=== PATIENT | male | born 1950 | race Caucasian/White ===

== ENCOUNTER → 2017-03-17 | Day surgery (SDC) | payer OTHER ==
[~2017-03-17] VITALS: Ht 182.9 cm; Wt 76.7 kg
[~2017-03-17] MED LIST: *morphine SULFATE 8 MG/ML PERIprocedure ONLY ONE; ACETAMINOPHEN/HYDROcodone 325 MG/7.5 MG TAB PO PRN; BUPIVACAINE/EPINEPHRINE 0.25% PF 30 ML VIAL ONE; CEPH-460 PO; CEPH500C3 PO; CEPHALEXIN MONOHYDRATE 500 MG CAP PO SCH; CHLORHEXIDINE GLUCONATE 2 % 1 PACK (2 CLOTHS) TOPICAL PRN; CHLORHEXIDINE GLUCONATE 4% SOLN 120 ML BTL TOPICAL SCH; DEXAMETHASONE SOD PHOS 4 MG/ML VIAL IV ONE; DO NOT ADM ANY ANTICOAGULANT DRUGS PRN; ENAL10TA PO; GENTAMICIN SULFATE 80 MG/2 ML VIAL ONE; GLIP5TAB8 PO; GLYCOPYRROLATE 1 MG/5 ML SYRINGE IV PUSH ONE; HYDR-3288 PO; HYDR-3583 PO; LABETALOL HCL 100 MG/20 ML VIAL IV ONE; LACTATED RINGER'S 1000 ML IV PRN; LIDOCAINE HCL 1% PF 5 ML SYRINGE OTHER ONE; LORT7.5T3 PO; METF500T4 PO; METH500T3 PO; METOPROLOL TARTRATE 25 MG TAB PO PRN; MIDAZOLAM HCL 2 MG/2 ML VIAL IV ONE; MORPHINE SULFATE 4 MG/ML INJ IV ONE; MORPHINE SULFATE 4 MG/ML INJ ONE; NEOSTIGMINE 5 MG/5 ML SYRINGE IV PUSH ONE; ONDANSETRON HCL 4 MG/2 ML VIAL IV ONE; OXYC15TA PO; POVIDONE IODINE 5% (ANTISEPSIS KIT) 4 APPLICATIONS EACH NARE PRN; PROPOFOL 200 MG/20 ML AMP IV ONE; ROCURONIUM INJ 50 MG/5 ML SYRINGE IV PUSH ONE; SODIUM CHLORID 0.9% 500 ML IV PRN; ceFAZolin 1,000 MG/NS 100 ML IV SCH; ceFAZolin INJ 1,000 MG VIAL ONE; hydrALAZINE HCL 20 MG/ML VIAL IV ONE
[2017-03-17 19:00] VITALS: BP 154/83; PULSE 96; RESP 18; TEMP 98.1; O2SAT 98
--- NOTE | 2017-03-17 19:55 | RADRPT ---
EXAM DATE/TIME: 03/17/2017 16:37 [place] COMPARISON: No previous studies available for comparison. INDICATIONS : Lower back pain. MEDICAL HISTORY : None. SURGICAL HISTORY : None. ENCOUNTER: Initial ACUITY: 1 day PAIN SCORE: Non-responsive. LOCATION: Bilateral lower back. FINDINGS: A single lateral view of the lumbar spine was performed. The probe overlies the neural foramen between L4 and L5. CONCLUSION: 1. Probe the overlying neural foramen between L4 and L5. Sagar Ospina MD on March 17, 2017 at 19:52 Board Certified Radiologist. This report was verified electronically.
--- NOTE | 2017-03-17 23:19 | MP ---
cc: JULIA JUAN DATE OF SURGERY: 03/17/2017 PREOPERATIVE DIAGNOSIS: L3-4, L4-5 herniated nucleus pulposus. POSTOPERATIVE DIAGNOSIS L3-4, L4-5 herniated nucleus pulposus. PROCEDURE L3-4, L4-5 bilateral hemilaminectomy, foraminotomy, partial facetectomy L3-4, L4-5 diskectomy. SURGEON Gia Juan MD ASSESSMENT CAMILO Mccall ESTIMATED BLOOD LOSS 100 cc SPECIMENS None ANESTHESIA General CONDITION: Stable. PLAN OF ACTIVITY: Per orders. My psychological assistant, CAMILO Mccall, was present for entire surgical case. She was medically necessary for entire case because of the complexity of the case and to facilitate the performance of the procedure. The FIELD EVIDENCE TECHNICIAN at the back table did not have the skill set for this case to manipulate the instruments, e.g., the multiple different type of soft tissue retractors and nerve root retractors. DESCRIPTION OF PROCEDURE: The patient was brought to the operating room and had satisfactory general anesthesia by the department of anesthesia. The patient was carefully transferred onto the [facility] spinal frame. All pressure points were well-padded. Lumbosacral spine was prepped and draped in usual sterile manner. The fluoroscopic guidance was used to identify the L3-4, L4-5 interspaces, 20 cc of local anesthesia was used to anesthetize the operative site. Midline incision made over L3-4, L4-5. Dissection continued through skin and subcutaneous tissue. There was a considerable amount of adipose tissue because of the patient's obesity. The paraspinal musculature was gently removed bilaterally at L4-5. A bilateral decompressive hemilaminectomy was performed at the L4-5 level. Bilateral facetectomy and foraminotomies were also performed. The patient was found to have moderate to moderately severe spinal stenosis, more on the right than the left. Satisfactory decompression was performed. There was no evidence of any CSF leak. There was no evidence of any bleeding. The wound was irrigated with copious amounts of sterile saline. The wound itself was dry. The wound was closed in a routine manner. The fascia was closed with running #2 Tycron suture, subcutaneous layers with 2-0 Vicryl, and skin approximated with running subcuticular 3-0 Vicryl. Dermabond was placed over the skin incision. The patient tolerated the procedure well and arrived in the recovery room in stable and satisfactory condition. No 2 hemilaminectomy PREOPERATIVE DIAGNOSIS: 1. L5-S1 herniated nucleus pulposus. 2. Lumbar spine degenerative disc disease osteoarthritis. 3. Left greater than right lumbar radiculitis, left lower extremity weakness. POSTOPERATIVE DIAGNOSIS: 1. L5-S1 herniated nucleus pulposus. 2. Lumbar spine degenerative disc disease osteoarthritis. 3. Left greater than right lumbar radiculitis, left lower extremity weakness. PROCEDURE: L5-S1 bilateral hemilaminectomy, foraminotomy, partial facetectomy, decompression nerve root; L5-S1 diskectomy. SURGEON Karson Juan MD NEW CAR MAKE READY WORKER: CAMILO Mccall SPECIMEN: None. ESTIMATED BLOOD LOSS: 10 cc COMPLICATIONS None ANESTHESIA General. DRAINS: None. CONDITION: Stable. PLAN OF ACTIVITY: Per orders. My psychological assistant Carmella Lemon PA-C was present for the entire surgical case. She was medically necessary for the entire case because of the complexity of the case and to facilitate the performance of the procedure. The FIELD EVIDENCE TECHNICIAN at the back table did not have the skill set for this case to manipulate the instruments, e.g., the multiple different type of soft tissue retractors and nerve root retractors. DESCRIPTION OF PROCEDURE: The patient was brought to the operating room and had satisfactory anesthesia by the Department of Anesthesia. The patient was carefully placed onto the [facility] spinal frame. All pressure points were well-padded. The lumbosacral spine was prepped and draped in the usual sterile manner. Fluoroscopic guidance was used to identify the L3-L4 and L4-L5 interspaces, 20 cc of local anesthesia was used to anesthetize the operative site. Midline incision made over the L3-L4 and L4-L5. Dissection continued through skin and subcutaneous tissue. The paraspinal musculature was gently removed. Localizing x-ray was used to confirm the L3-4, L4-5 interspaces. Hemilaminectomy performed at L3-4 and L4-5. Foraminotomy and partial facetectomy was also performed on the right side. The patient was found to have a large extruded herniated nucleus pulposus behind the vertebral body of L4. Dissection carried all the way from the interspace of L3-L4 all the way down to the interspace of L4-L5. There was no evidence of any cerebrospinal fluid leak. The disk was removed in multiple large pieces. Surgiflo was also used at the operative site to help prevent any postoperative bleeding at the epidural space. The wound itself was dry. It was irrigated with copious amounts of sterile saline, the wound itself was dry. It was closed in multiple layers, the fascia closed with #2 Tycron suture. The subcutaneous layer with 2-0 Vicryl. Skin approximated with running subcuticular 3-0 Vicryl. Sterile dressings were applied. The patient tolerated the procedure well and arrived in the Recovery Room in stable and satisfactory condition. MD JOSE Nichols/RA /5:02 PM /10:57 PM
== END | disposition home or self-care (01) ==
LOC: HSDC 11:39 → EDSTATUS 14:15
PROVIDERS: ATTEND Orthopaedic Surgery Orthopaedic Surgery of the Spine
DX: M51.16 Intervertebral disc disorders with radiculopathy, lumbar region (principal); M96.1 Postlaminectomy syndrome, not elsewhere classified; M16.0 Bilateral primary osteoarthritis of hip; I10 Essential (primary) hypertension
CPT/HCPCS: 00630; 63030; 63035; 72020; 76000; J0360; J0690; J1100; J1580; J2250; J2270; J2405; J2710; J3010; J7120

== ENCOUNTER 2017-04-14 12:51 | Day surgery (SDC) | payer OTHER ==
[~2017-04-14] VITALS: Ht 182.9 cm; Wt 72.7 kg
[~2017-04-14 12:51] MED LIST changes: -*morphine SULFATE 8 MG/ML PERIprocedure ONLY ONE; -ACETAMINOPHEN/HYDROcodone 325 MG/7.5 MG TAB PO PRN; -BUPIVACAINE/EPINEPHRINE 0.25% PF 30 ML VIAL ONE; -CEPH500C3 PO; -CEPHALEXIN MONOHYDRATE 500 MG CAP PO SCH; -CHLORHEXIDINE GLUCONATE 2 % 1 PACK (2 CLOTHS) TOPICAL PRN; -CHLORHEXIDINE GLUCONATE 4% SOLN 120 ML BTL TOPICAL SCH; -DO NOT ADM ANY ANTICOAGULANT DRUGS PRN; -GENTAMICIN SULFATE 80 MG/2 ML VIAL ONE; +LACTATED RINGER'S 1000 ML INJ 1,000 ML IV ONE; -LACTATED RINGER'S 1000 ML IV PRN; -LORT7.5T3 PO; -METOPROLOL TARTRATE 25 MG TAB PO PRN; -MIDAZOLAM HCL 2 MG/2 ML VIAL IV ONE; -MORPHINE SULFATE 4 MG/ML INJ IV ONE; -MORPHINE SULFATE 4 MG/ML INJ ONE; -ONDANSETRON HCL 4 MG/2 ML VIAL IV ONE; +ONDANSETRON HCL 4 MG/2 ML VIAL IV PUSH ONE; +PHENYLEPH/NS 1000 MCG/10 ML SYR IV ONE; -POVIDONE IODINE 5% (ANTISEPSIS KIT) 4 APPLICATIONS EACH NARE PRN; -SODIUM CHLORID 0.9% 500 ML IV PRN; +VECURONIUM BROMIDE 20 MG VIAL IV ONE; -ceFAZolin 1,000 MG/NS 100 ML IV SCH; -ceFAZolin INJ 1,000 MG VIAL ONE; +ePHEDrine/NS 25 MG/5 ML SYRINGE IV ONE; -hydrALAZINE HCL 20 MG/ML VIAL IV ONE
[2017-04-14] MEDS ORDERED: CHLORHEXIDINE GLUCONATE 4% SOLN 120 ML BTL TOPICAL SCH (13:30)
[2017-04-14] MEDS ORDERED: ceFAZolin 2 GM PREMIX 50 ML IV SCH (13:30)
[2017-04-14] MEDS ORDERED: LACTATED RINGER'S 1000 ML IV PRN (13:30)
[2017-04-14] MEDS ORDERED: CHLORHEXIDINE GLUCONATE 2 % 1 PACK (2 CLOTHS) TOPICAL PRN (13:30)
[2017-04-14] MEDS ORDERED: METOPROLOL TARTRATE 25 MG TAB PO PRN (13:30)
[2017-04-14] MEDS ORDERED: POVIDONE IODINE 5% (ANTISEPSIS KIT) 4 APPLICATIONS EACH NARE PRN (13:30)
[2017-04-14] MEDS ORDERED: SODIUM CHLORID 0.9% 500 ML IV PRN (13:30)
[2017-04-14] MEDS ORDERED: BUPIVACAINE/EPINEPHRINE 0.25% PF 30 ML VIAL ONE (14:34)
[2017-04-14] MEDS ORDERED: ceFAZolin INJ 1,000 MG VIAL ONE (14:34)
[2017-04-14] MEDS ORDERED: GENTAMICIN SULFATE 80 MG/2 ML VIAL ONE (14:34)
[2017-04-14] MEDS ORDERED: GELFOAM SIZE 100 ONE (14:36)
[2017-04-14] MEDS ORDERED: THROMBIN (TOPICAL) 20,000 UNIT SPRAY KIT ONE (14:36)
[2017-04-14] MEDS ORDERED: THROMBIN (TOPICAL) 5,000 UNIT VIAL ONE (16:48)
[2017-04-14] MEDS ORDERED: MIDAZOLAM HCL 2 MG/2 ML VIAL ONE ×2 (19:08→19:22)
[2017-04-14 19:15] VITALS: TEMP 98.6
[2017-04-14] MEDS ORDERED: *morphine SULFATE 8 MG/ML PERIprocedure ONLY ONE ×3 (19:27→19:55)
[2017-04-14] MEDS ORDERED: ceFAZolin 1,000 MG/NS 100 ML IV SCH ×2 (20:00)
[2017-04-14] MEDS ORDERED: ACETAMINOPHEN/HYDROcodone 325 MG/7.5 MG TAB PO PRN (20:00)
[2017-04-14] MEDS ORDERED: DO NOT ADM ANY ANTICOAGULANT DRUGS PRN (20:15)
[2017-04-14 20:45] VITALS: BP 158/79; PULSE 84; RESP 16; O2SAT 96
[2017-04-14] MEDS ORDERED: *HYDROmorphone PF 1 MG VIAL PERIprocedural Use ONLY ONE (20:59)
--- NOTE | 2017-04-15 07:42 | MP ---
cc: JULIA JUAN M.D., [place] DATE OF SURGERY 04/14/2017 PREOPERATIVE DIAGNOSIS 1. L3-4, L4-5 recurrent herniated nucleus pulposus. 2. Status post L3-4 and L4-5 laminectomy March 17, 2017. 3. Lumbar spine degenerative disc disease, osteoarthritis, scoliosis. 4. Right greater than left lumbar radiculitis with right lower extremity weakness. POSTOPERATIVE DIAGNOSIS 1. L3-4, L4-5 recurrent herniated nucleus pulposus. 2. Status post L3-4 and L4-5 laminectomy March 17, 2017. 3. Lumbar spine degenerative disc disease, osteoarthritis, scoliosis. 4. Right greater than left lumbar radiculitis with right lower extremity weakness. PROCEDURE L3-4, L4-5 bilateral hemilaminectomy and foraminotomy, partial facetectomy, decompression nerve root, and redo L4-5, L3-4 diskectomy. SURGEON Gia Juan MD ASSESSMENT Carmella Lemon PA-C SPECIMENS None ESTIMATED BLOOD LOSS 125 cc ANESTHESIA General DRAINS None CONDITION Stable PLAN OF ACTIVITY Per orders INDICATIONS This is a 67-year-old male who is status post L3-4, L4-5 laminectomy and diskectomy on May 18, 2016. The patient did very well following the surgery, had no radiating leg pain and back pain. The patient states that he "overdid" in bending and twisting and on developed recurrent extreme pain into the right leg and to a lesser agree into the left leg. Repeat images showed the patient to have a recurrent herniated nucleus pulposis at L3-4 and also at L4-5. PROCEDURE My casino assistant manager Carmella Lemon PA-C was present for the entire surgical case. She was medically necessary for the entire case because of the complexity of the case and to facilitate the performance of the procedure. The SPOUT TENDER at the back table was not a skill set to manipulate the instruments. These include soft tissue retractors and nerve retractors. The patient brought into the operating room, had satisfactory anesthesia by Dr. Mir of the Department of Anesthesia. The patient was carefully transferred onto the [facility] spinal frame. All pressure points were well-padded. The lumbosacral spine was prepped and draped in the usual sterile manner. Imaging was used to confirm both the L4-5 and L3-4 interspaces. 30 cc of 0.25% Marcaine with epinephrine was used to infiltrate the operative site. Previous scar tissue was surgically excised. Dissection carried down through the subcutaneous tissue. The patient had an excessive amount of scar tissue. This was removed sharply. A bilateral decompressive hemilaminectomy was performed at L4-5. The patient was found to have an excessive amount of scar tissue. The patient was found to have a central and right-sided extruded herniated nucleus pulses at the L4-5 area. This was removed in multiple pieces. The patient had significant impingement of both the L4 and L5 nerve roots. Further dissection was then carried out at the L3-4 interspace. The patient was found to have an extension amount of scar tissue. The patient again was found to have a recurrent extruded fragment on the inferior aspect of the L4 vertebral body at the L3-4 interspace. Bilateral decompressive hemilaminectomy was performed with foraminotomies. The wound was irrigated with copious amounts of sterile saline antibiotic solution. The wound itself was dry. The wound was closed in multiple layers. No evidence of any CSF leaks. No bleeding was noted. Surgicel was used to make sure of satisfactory hemostasis especially with the plan was a revisional laminectomy. The fascia was closed with #2 Tycron suture, subcutaneous tissues closed in layers with 2-0 Vicryl and the skin was approximated with interrupted 2-0 nylon. A sterile dressing was applied. The patient tolerated the procedure well and arrived in the recovery room in stable and satisfactory condition. MD JOSE Nichols/CT /6:52 PM /7:17 AM
--- NOTE | 2017-04-15 14:13 | EKG ---
Date Performed: 04/14/2017 Time Performed: 13:40:13 PTAGE: 67 years EKG: Sinus rhythm WITH OCCASIONAL SUPRAVENTRICULAR PREMATURE COMPLEXES RIGHT BUNDLE BRANCH BLOCK LEFT ANTERIOR FASCICU LAR BLOCK MINIMAL VOLTAGE CRITERIA FOR LVH, CONSIDER NORMAL VARIANT ABNORMAL ECG NO PREVIOUS TRACING DOCTOR: Loin Mtz Interpretating Date/Time 04/15/2017 14:12:34
--- NOTE | 2017-04-18 12:54 | MP ---
cc: MATT LARSEN,JULIA Haines M.D. DATE OF SURGERY 04/17/2017 PREOPERATIVE DIAGNOSIS 1. C5-6 osteophyte disk complex, central herniated nucleus Pulposus, moderate spinal stenosis, spinal cord compression. 2. Right groin left foraminal stenosis. 3. Status post C3-4, C4-[address]CDF [address] Aaron. 4. C3-4 spinal cord edema, myelomalacia. 5. C2-T1 degenerative disease, osteoarthritis. POSTOPERATIVE DIAGNOSIS 1. C5-6 osteophyte disk complex, central herniated nucleus Pulposus, moderate spinal stenosis, spinal cord compression. 2. Right groin left foraminal stenosis. 3. Status post C3-4, C4-[address]F [address] Aaron. 4. C3-4 spinal cord edema, myelomalacia. 5. C2-T1 degenerative disease, osteoarthritis. PROCEDURE C5-6 anterior interbody fusion, anterior iliac crest bone graft, interbody fusion, Spinet ACC anterior cervical cage, and Spinet Rauscher anterior spinal instrumentation. SURGEON Gia Juan MD COMMERCIAL GREEN BUILDING ARCHITECT Carmella Lemon PA-C ESTIMATED BLOOD LOSS 50 cc for the entire case ANESTHESIA General DRAINS None PROCEDURE Dr. Benito Juan and myself were co-surgeons. Dr. Benito Juan performed the neurosurgical decompressive portion of the procedure and I performed the orthopedic spinal stabilization and fusion portion of procedure. This is well-described in our notes. My oceanographer assistant Carmella Lemon PA-C was present for my portion of the surgical procedure. She was medically necessary for the entire case because of the complexity of the case and to facilitate the performance of the procedure. The LOG CARRIER OPERATOR at the back table was not a skill set for this case to manipulate the instruments e.g. multiple different types of soft tissue retractors, trial implants and permanent plans. The patient brought into the operating room, had satisfactory anesthesia by the Department of Anesthesia. Dr. Benito Juan performed a right longitudinal anterior cervical spine incision. He performed removal the anterior spinal instrumentation at C3-4, C4-5. Exploration of the fusion revealed that he had a satisfactory fusion. Then he performed a C5-6 anterior cervical diskectomy/anterior decompression using the operative microscope with foraminotomies. I was not present for his portion of the procedure. The endplates were prepared for fusion. The hyaline cartilage endplates were removed using angled curets and burs. A six 10 x 12 ACC cage placed in the space in a satisfactory manner. Anterior iliac crest bone graft used under fluoroscopic guidance under for interbody fusion. Anterior osteophytes removed using angled curettes, rongeurs and burs. A 21 mm plate was used. Also traction tack pin was also used to provide fixation. Under fluoroscopic guidance in the AP and lateral plane, there was found to be satisfactory position of the plate. Two screws were used in the vertebral body at C5 and C6. Screws were drilled. Each screw was initially drilled. Each screw was 14 mm in length, 4.0 mm outer diameter fixed angle screws. Each screw was inserted and each screw head appropriately locked to the plate. Intraoperative fluoroscopy in AP and lateral planes confirmed satisfactory placement of the bone graft at C5-6, satisfactory position of the anterior cervical cage at C5-6 and satisfactory anterior spinal instrumentation at C5-6. The patient had satisfactory removal of the anterior spinal instrumentation from C3-C5. The wound was irrigated with copious amounts of sterile saline antibiotic solution. The wound itself was dry. The wound itself was closed in routine manner in multiple layers using 3-0 Vicryl suture. A subcutaneous layers closed with 3-0 Vicryl. Skin approximated with a running subcuticular 4-0 Vicryl. Dermabond placed over the incisions. A sterile dressing applied. The patient placed a Brandon cervical orthosis. The patient tolerated the procedure well and arrived in the Recovery Room in stable and satisfactory condition. MD JOSE Nichols/CT /4:00 PM /12:20 PM
== END 2017-04-14 21:00 | disposition home or self-care (01) ==
LOC: HSDC 12:51
PROVIDERS: ATTEND Orthopaedic Surgery Orthopaedic Surgery of the Spine
DX: M51.16 Intervertebral disc disorders with radiculopathy, lumbar region (principal); M96.1 Postlaminectomy syndrome, not elsewhere classified; M41.9 Scoliosis, unspecified; I10 Essential (primary) hypertension; E11.9 Type 2 diabetes mellitus without complications; Z79.84 Long term (current) use of oral hypoglycemic drugs
CPT/HCPCS: 00630; 63042; 63044; 76000; 93005; J0690; J1100; J1170; J1580; J2250; J2270; J2370; J2405; J2710; J3010; J7120